=== PATIENT | male | born 1995 | race Caucasian/White ===

== ENCOUNTER → 2022-09-20 13:27 | Outpatient (CLI) | payer OTHER, SELFPAY ==
[2022-09-20 14:02] LABS: Microscopic, Urine URINE MICROSCOPIC (MICROSCOPIC)
[2022-09-20 14:19] LABS: Basophils % 0.4 % (0.1-2.0); Eosinophils # 0.1 K/mm3 (0.0-0.4); Eosinophils % 1.3 % (0.1-12.0); Hematocrit 47.6 % (42.0-52.0); Hemoglobin 15.9 g/dL (14.1-18.0); Lymphocytes # 1.6 K/mm3 (0.7-4.5); Mean Corpuscular HGB Conc 33.4 g/dL (31.8-35.4); Mean Corpuscular Hemoglobin 30.1 pg (27.0-31.2); Mean Platelet Volume 7.8 fl (7.4-10.4); Monocytes # 0.4 K/mm3 (0.1-1.0); Monocytes % 6.1 % (1.7-9.3); Neutrophils # 4.5 K/mm3 (1.8-7.8); Neutrophils % 68.2 % (37.0-80.0); Platelet Count 170 K/mm3 (142-424); Red Blood Count 5.29 M/mm3 (4.60-6.20); Red Cell Distribution Width 13.6 % (11.5-17.5); White Blood Count 6.6 K/mm3 (4.8-10.8)
[2022-09-20 14:24] LABS: Appearance,Urine CLOUDY (Clear); Bilirubin,Urine Negative (Negative); Blood, Urine Negative (Negative); Color,Urine YELLOW (Yellow); Glucose,Urine (UA) Negative (Negative); Ketones,Urine Negative (Negative); Leukocyte Esterase,Urine Negative (Negative); Nitrate,Urine Negative (Negative); Protein,Urine Negative (Negative)
[2022-09-20 14:34] LABS: WBC,Urine Occasional #/hpf (0-3)
[2022-09-20 14:35] LABS: Bacteria,Urine Trace /lpf
[2022-09-20 14:50] LABS: Alanine Aminotransferase 19 U/L (12-78); Albumin Level 4.9 g/dl (3.5-5.0); Albumin/Globulin Ratio 1.8 (1.1-1.8); Alkaline Phosphatase 47 U/L (38-126); Anion Gap 14.7 mEq/L (5-15); Aspartate Amino Transferase 28 U/L (17-59); Bilirubin,Total 0.7 mg/dl (0.2-1.3); Blood Urea Nitrogen 15 mg/dl (9-20); Calcium 9.5 mg/dl (8.4-10.2); Carbon Dioxide 31 mmol/L (22.0-30.0); Chloride 101 mmol/L (98-107); Estimated Glomerular Filt Rate 103 ml/min (>60); GFR (African American) 124 ML/MIN (>60); Globulin 2.7 g/dL (1.3-3.2); Glucose 92 mg/dl (74-100); HDL Cholesterol 47 mg/dl (40-60); Potassium 4.7 mmoL/L (3.5-5.1); Sodium 142 mmol/L (136-145); Total Protein,Serum 7.6 g/dl (6.3-8.2); Triglycerides 164 mg/dl (30-150); VLDL Cholesterol 33 mg/dL (0-40)
[2022-09-20 15:00] LABS: Chol/HDL Ratio 8.6 (1-3.5); Cholesterol 405 mg/dl (140-200)
[2022-09-20 15:01] LABS: Direct LDL Cholesterol 268.09 mg/dL (100-129)
[2022-09-20 15:07] LABS: 25-OH Vitamin D, Total 28.8 ng/mL (30-100)
[2022-09-20 15:23] LABS: Thyroid Stimulating Hormone 0.62 uIU/mL (0.465-4.68)
[2022-09-20 15:40] LABS: Vitamin B12 355 pg/mL (239-931)
[2022-09-22 10:35] LABS: HIV Screen 4th Generation wRfx Non Reactive (Non Reactive)
[2022-09-22 11:57] LABS: Rapid Plasma Reagin Ab Titer Non Reactive (NonRea<1:1)
[2022-09-22 22:40] LABS: Neisseria gonorrhoeae, NAA Negative (Negative)
== END ==
LOC: LAB.DROPOF 09-21 07:07
PROVIDERS: PCP Nurse Practitioner Family; Visit Provider Nurse Practitioner Family
DX: Z00.00 Encounter for general adult medical examination without abnormal findings (principal); E55.9 Vitamin D deficiency, unspecified; Z13.1 Encounter for screening for diabetes mellitus; Z11.4 Encounter for screening for human immunodeficiency virus [HIV]; R53.83 Other fatigue; Z13.220 Encounter for screening for lipoid disorders; Z11.3 Encounter for screening for infections with a predominantly sexual mode of transmission
CPT/HCPCS: 80053; 80061; 81001; 82306; 82607; 83036; 84443; 85025; 86593; 86703; 87086; 87491; 87591; G0432

== ENCOUNTER → 2022-12-26 16:07 | Outpatient (CLI) | payer OTHER, SELFPAY ==
[2022-12-26 14:28] LABS: Chloride 101 mmol/L (98-107); Potassium 3.9 mmoL/L (3.5-5.1); Sodium 140 mmol/L (136-145)
[2022-12-26 14:30] LABS: Alanine Aminotransferase 21 U/L (12-78); Aspartate Amino Transferase 30 U/L (17-59); Blood Urea Nitrogen 17 mg/dl (9-20); Estimated Glomerular Filt Rate 91 ml/min (>60); GFR (African American) 110 ML/MIN (>60)
[2022-12-26 14:31] LABS: Albumin Level 4.5 g/dl (3.5-5.0); Albumin/Globulin Ratio 1.7 (1.1-1.8); Alkaline Phosphatase 50 U/L (38-126); Anion Gap 13.9 mEq/L (5-15); Bilirubin,Total 1.1 mg/dl (0.2-1.3); Carbon Dioxide 29 mmol/L (22.0-30.0); Chol/HDL Ratio 6.1 (1-3.5); Cholesterol 258 mg/dl (140-200); Globulin 2.7 g/dL (1.3-3.2); Glucose 71 mg/dl (74-100); HDL Cholesterol 42 mg/dl (40-60); Total Protein,Serum 7.2 g/dl (6.3-8.2); Triglycerides 90 mg/dl (30-150); VLDL Cholesterol 18 mg/dL (0-40)
== END ==
PROVIDERS: PCP Nurse Practitioner Family; Visit Provider Nurse Practitioner Family
DX: E78.5 Hyperlipidemia, unspecified (principal)
CPT/HCPCS: 80053; 80061

== ENCOUNTER 2024-05-07 14:58 | Outpatient (CLI) | payer OTHER, SELFPAY ==
[2024-05-09 14:11] LABS: HSV-1 DNA Negative (Negative); HSV-2 DNA Negative (Negative)
== END 2024-05-07 23:59 | disposition home or self-care (01) ==
LOC: LAB.DROPOF 05-08 12:56
PROVIDERS: PCP Nurse Practitioner Family; Visit Provider Nurse Practitioner Family
DX: R21 Rash and other nonspecific skin eruption (principal)
CPT/HCPCS: 87529